=== PATIENT | female | born 1995 | race Caucasian/White ===

== ENCOUNTER 2017-08-19 11:11 | Emergency (ER) | payer MEDICAID ==
[~2017-08-19] VITALS: Ht 170.2 cm; Wt 104.5 kg
[~2017-08-19 11:11] MED LIST: CEPH500C5 PO
[2017-08-19 12:57] VITALS: BP 147/78
== END 2017-08-19 13:02 | disposition home or self-care (01) ==
LOC: ER 11:12
DX: G56.01 Carpal tunnel syndrome, right upper limb (principal); F41.9 Anxiety disorder, unspecified
CPT/HCPCS: 99281